=== PATIENT | female | born 1990 | race Caucasian/White ===

== ENCOUNTER 2019-06-11 07:59 | Emergency (ER) | payer BC, OTHER ==
[2019-06-11] MEDS ORDERED: DIAZEPAM 5 MG TABLET ONE (08:48)
[2019-06-11] MEDS ORDERED: HYDROCODONE/APAP 5/325 MG TAB ONE (08:48)
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
[2019-06-11 10:20] VITALS: BP 138/92; O2SAT 99
[2019-06-11 10:21] VITALS: TEMP 97.8
[2019-06-11 10:42] LABS: Urine Bacteria <20 /HPF (<20); Urine Mucus SLIGHT /HPF (NONE SEEN); Urine RBC <5 /HPF (NONE SEEN)
[2019-06-11 10:44] LABS: Urine Culture Reflex Order NOT NEEDED
[2019-06-11 20:37] LABS: Urine Blood NEGATIVE (NEG); Urine Glucose NEGATIVE (NEG); Urine Protein NEGATIVE (NEG)
== END 2019-06-11 10:13 | disposition home or self-care (01) ==
LOC: ER 07:59
DX: R51 Headache (principal); M54.12 Radiculopathy, cervical region; V43.52XA Car driver injured in collision with other type car in traffic accident, initial encounter; Y93.89 Activity, other specified; Y92.410 Unspecified street and highway as the place of occurrence of the external cause
CPT/HCPCS: 70450; 72125; 81003; 81015; 99284